=== PATIENT | male | born 1925 | race Caucasian/White ===

== ENCOUNTER 2017-03-14 12:45 | Inpatient (IN) | payer MEDICARE ==
[~2017-03-14] VITALS: Ht 170.2 cm; Wt 47.5 kg
[2017-03-14] MEDS ORDERED: POLYETHYLENE GLYCOL 17 GM PACKET PO PRN (17:30)
[2017-03-14] MEDS ORDERED: ACETAMINOPHEN 325 MG TABLET PO PRN (17:30)
[2017-03-14] MEDS ORDERED: BISACODYL 10 MG SUPP PR PRN (17:30)
[2017-03-14] MEDS ORDERED: PLEASE ENTER HEIGHT AND WEIGHT MC SCH (17:30)
[2017-03-14] MEDS ORDERED: DOCUSATE 100 MG CAPSULE PO PRN (17:30)
[2017-03-14] MEDS: PLEASE ENTER ALLERGIES MC SCH ×2 (17:30)
[2017-03-14 18:46] VITALS: BP 113/61
[2017-03-14 19:00] LABS: BLOOD UREA NITROGEN 35 mg/dL (7-18)
[2017-03-14 19:18] LABS: IS PT STATUS REG ER OR PRE ER? NO
[2017-03-14 20:00] VITALS: BP 118/69
[2017-03-14] MEDS: SODIUM CHLORIDE 0.9% 1,000 ML IV SCH (20:13)
[2017-03-14] MEDS: HEPARIN 5,000 UNITS/ML, 1ML SQ SCH (20:15)
[2017-03-14 22:56] LABS: IS PT STATUS REG ER OR PRE ER? NO
[2017-03-15 00:32] VITALS: BP 118/69
[2017-03-15] MEDS ORDERED: ALBUTEROL/IPRATROPIUM 2.5MG/0.5MG, 3 ML NPPB PRN (01:00)
[2017-03-15 05:33] LABS: BLOOD UREA NITROGEN 31 mg/dL (7-18)
[2017-03-15] MEDS: HEPARIN 5,000 UNITS/ML, 1ML SQ SCH ×3 (06:00→21:21)
[2017-03-15 07:13] LABS: RAPID INFLUENZA A Negative (Negative); RAPID INFLUENZA B Negative (Negative)
[2017-03-15] MEDS: SODIUM CHLORIDE 0.9% 1,000 ML IV SCH (07:41)
[2017-03-15 07:57] VITALS: BP 108/64
[2017-03-15] MEDS: CEFTRIAXONE PMX 1GM/50ML 50 ML IV SCH (09:03)
[2017-03-15] MEDS: DOXYCYCLINE 100 MG in DEXTROSE 5% 250 ML IV SCH ×3 (09:55→21:50)
[2017-03-15] MEDS ORDERED: POTASSIUM PHOSPHATE 44 MEQ in SODIUM CHLORIDE 0.9% 500 ML IV ONE (14:30)
[2017-03-15 15:22] VITALS: BP 128/69
[2017-03-15 19:55] VITALS: BP 128/62
[2017-03-16 01:08] VITALS: BP 148/69
[2017-03-16] MEDS: HEPARIN 5,000 UNITS/ML, 1ML SQ SCH ×3 (05:30→22:14)
[2017-03-16 06:16] LABS: BLOOD UREA NITROGEN 19 mg/dL (7-18)
[2017-03-16 07:20] LABS: DIFF TOTAL CELLS COUNTED 100 CELL DIFF
[2017-03-16 07:21] LABS: VERIFY COUNTS? YES
[2017-03-16 07:22] LABS: POLYCHROMASIA 1+
[2017-03-16 07:58] VITALS: BP 130/66
[2017-03-16] MEDS: CEFTRIAXONE PMX 1GM/50ML 50 ML IV SCH (08:44)
[2017-03-16] MEDS: DOXYCYCLINE 100 MG in DEXTROSE 5% 250 ML IV SCH ×2 (09:57→22:15)
[2017-03-16] MEDS ORDERED: POTASSIUM CHLORIDE 20 MEQ TAB.ER.PRT PO ONE (10:30)
[2017-03-16 13:37] VITALS: BP 139/70
[2017-03-16 18:20] VITALS: BP 138/72
[2017-03-16 20:59] VITALS: BP 138/76
[2017-03-17 01:41] VITALS: BP 139/73
[2017-03-17] MEDS: HEPARIN 5,000 UNITS/ML, 1ML SQ SCH ×3 (05:41→21:49)
[2017-03-17 05:44] LABS: BLOOD UREA NITROGEN 13 mg/dL (7-18)
[2017-03-17 07:15] VITALS: BP 144/72
[2017-03-17] MEDS: CEFTRIAXONE PMX 1GM/50ML 50 ML IV SCH (09:52)
[2017-03-17 12:45] VITALS: BP 111/67
[2017-03-17] MEDS: DOXYCYCLINE 100 MG in DEXTROSE 5% 250 ML IV SCH (13:19)
[2017-03-17] MEDS: SODIUM CHLORIDE 0.9% 1,000 ML IV SCH (18:40)
[2017-03-17 20:00] VITALS: BP 145/81
[2017-03-18] MEDS: DOXYCYCLINE 100 MG in DEXTROSE 5% 250 ML IV SCH (00:33)
[2017-03-18 01:53] VITALS: BP 143/73
[2017-03-18 05:12] LABS: BLOOD UREA NITROGEN 11 mg/dL (7-18)
[2017-03-18 05:34] LABS: DIFF TOTAL CELLS COUNTED 100 CELL DIFF
[2017-03-18 05:36] LABS: HYPOCHROMIA 1+; VERIFY COUNTS? YES
[2017-03-18 05:37] LABS: POIKILOCYTOSIS 1+
[2017-03-18] MEDS: HEPARIN 5,000 UNITS/ML, 1ML SQ SCH ×3 (05:56→20:45)
[2017-03-18 07:13] VITALS: BP 148/82
[2017-03-18] MEDS: CEFTRIAXONE PMX 1GM/50ML 50 ML IV SCH (09:56)
[2017-03-18] MEDS: SODIUM CHLORIDE 0.9% 1,000 ML IV SCH (11:30)
[2017-03-18] MEDS ORDERED: methylPREDNISolone SOD SUCC 125 MG/2 ML IVPush SCH (12:00)
[2017-03-18] MEDS ORDERED: POTASSIUM CHLORIDE 20 MEQ TAB.ER.PRT PO ONE (12:00)
[2017-03-18 13:20] VITALS: BP 122/72
[2017-03-18] MEDS: DOXYCYCLINE 100MG TABLET PO SCH (13:46)
[2017-03-18] MEDS ORDERED: CEFD300C37 PO (15:06)
[2017-03-18] MEDS ORDERED: DOXY100T PO (15:06)
[2017-03-18 19:47] VITALS: BP 147/75
[2017-03-19] MEDS: DOXYCYCLINE 100MG TABLET PO SCH ×3 (00:48→12:33)
[2017-03-19] MEDS: SODIUM CHLORIDE 0.9% 1,000 ML IV SCH (00:55)
[2017-03-19 02:00] VITALS: BP 118/68
[2017-03-19 05:28] LABS: BLOOD UREA NITROGEN 12 mg/dL (7-18)
[2017-03-19] MEDS: HEPARIN 5,000 UNITS/ML, 1ML SQ SCH (06:15)
[2017-03-19 07:05] VITALS: BP 141/70
[2017-03-19] MEDS: CEFTRIAXONE PMX 1GM/50ML 50 ML IV SCH (09:48)
== END 2017-03-19 13:25 | disposition hospice, home (50) | DRG 682 ==
LOC: 3NE 15:50 → 3NW 03-16 18:00
PROVIDERS: ADMIT Internal Medicine; ATTEND Internal Medicine
DX: N17.0 Acute kidney failure with tubular necrosis (principal); J18.9 Pneumonia, unspecified organism; E43 Unspecified severe protein-calorie malnutrition; J96.01 Acute respiratory failure with hypoxia; Z68.1 Body mass index [BMI] 19.9 or less, adult; J44.0 Chronic obstructive pulmonary disease with (acute) lower respiratory infection; J44.1 Chronic obstructive pulmonary disease with (acute) exacerbation; D75.89 Other specified diseases of blood and blood-forming organs; E03.9 Hypothyroidism, unspecified; E78.5 Hyperlipidemia, unspecified; E86.0 Dehydration; E87.5 Hyperkalemia; E87.6 Hypokalemia; F43.10 Post-traumatic stress disorder, unspecified; I50.9 Heart failure, unspecified; I11.0 Hypertensive heart disease with heart failure; I25.10 Atherosclerotic heart disease of native coronary artery without angina pectoris; I25.2 Old myocardial infarction; I48.91 Unspecified atrial fibrillation; M19.90 Unspecified osteoarthritis, unspecified site; J44.9 Chronic obstructive pulmonary disease, unspecified; N40.0 Benign prostatic hyperplasia without lower urinary tract symptoms; R62.7 Adult failure to thrive; Z82.49 Family history of ischemic heart disease and other diseases of the circulatory system; Z85.828 Personal history of other malignant neoplasm of skin; Z86.73 Personal history of transient ischemic attack (TIA), and cerebral infarction without residual deficits; Z87.01 Personal history of pneumonia (recurrent); Z87.891 Personal history of nicotine dependence; Z95.1 Presence of aortocoronary bypass graft; Z79.82 Long term (current) use of aspirin; Z79.899 Other long term (current) drug therapy
CPT/HCPCS: 36415; 71010; 80048; 81003; 82607; 83605; 83735; 83880; 84100; 84145; 84443; 84484; 85025; 87040; 87400; 93005; 94640; J0696; J1644; J7060; J7620; J7030; J7040